=== PATIENT | male | born 1965 | race Caucasian/White ===

== ENCOUNTER 2017-04-07 19:48 | Emergency (ER) | payer BC, OTHER ==
[~2017-04-07] VITALS: Ht 182.9 cm; Wt 99.8 kg
[~2017-04-07 19:48] MED LIST: ZANTAC
[2017-04-07] MEDS ORDERED: HYDROCODON-ACE1 EAC5 PO (20:01)
[2017-04-07] MEDS ORDERED: COLCHICINE0.6 MG PO (21:07)
[2017-04-07] MEDS ORDERED: NORCO 5-325 TA1 EACH PO (21:10)
[2017-04-07 21:31] VITALS: BP 126/79
== END 2017-04-07 21:35 | disposition home or self-care (01) ==
LOC: ER 19:48
DX: M10.9 Gout, unspecified (principal); Z88.5 Allergy status to narcotic agent; Z98.890 Other specified postprocedural states

== ENCOUNTER 2017-12-13 16:16 | Inpatient (IN) | payer BC, OTHER ==
[~2017-12-13] VITALS: Ht 180.3 cm; Wt 97.5 kg
--- NOTE | ~2017-12-13 | EKG ---
[address] [place] [address] ELECTROCARDIOGRAM REPORT Name: DORA EARLY Room #: 463-P [facility] IN ..#: [id number] Admission: 12/13/17 Attend Phys: Raul Foreman MD Discharge: Date of : 65 Report #: [id number] THIS REPORT FOR: //name// ED Test Date: 2017-12-13 Test Time: 16:32:39 Pat Name: DORA EARLY Department: Room: Gender: M Computer Systems Administrator: [facility] : 1965 Requested By: Jeison aWllace Order Number: [id number] MD: Sergio Jarrett Measurements Intervals [place] Rate: 78 P: 1 DE: 171 QRS: -7 QRSD: 86 T: 40 QT: 350 QTc: 399 Interpretive Statements Sinus rhythm No significant abnormality Compared to ECG 06/29/2008 22:42:13 ST (T wave) deviation no longer present Electronically Signed On 12-14-2017 7:52:05 CDT by Sergio Jarrett [email or web address] <ELECTRONICALLY SIGNED> By: Sergio Jarrett MD, [facility] 12/14/17 0752 [id number] 163 Sergio Jarrett MD, [facility] /EPI
--- NOTE | ~2017-12-13 | 2DMMODE ---
[facility] [address] [place] [address] 2 D/M-MODE ECHOCARDIOGRAM Name: DORA EARLY Room #: 463-P [facility] IN ..#: [id number] Admission: 12/13/17 Attend Phys: Raul Foreman MD Discharge: Date of : 65 Date of Service: 12/14/17 1608 Report #: [id number] THIS REPORT FOR: //name// APPROVED REPORT Study performed: 12/14/2017 15:14:12 EXAM: Comprehensive 2D, Doppler, and color-flow Echocardiogram Patient Location: Bedside Room #: 463 Status: routine BSA: 2.15 HR: 60 bpm BP: 110/68 mmHg Other Information Study Quality: Adequate Indications CAD Chest Pain Presyncope Aortic Valve AoV Peak Nate.: 1.16 m/s AO Peak Gr.: 5.41 mmHg LVOT Max P.98 mmHg LVOT Max V: 1.00 m/s Mitral Valve E/A Ratio: 1.1 MV Decel. Time: 247.93 ms MV E Max Nate.: 0.84 m/s MV A Nate.: 0.78 m/s MV PHT: 71.90 ms IVRT: 101.50 ms Pulmonary Valve PV Peak Nate.: 0.70 m/s PV Peak Gr.: 1.94 mmHg Pulmonary Vein P Vein S: 0.41 m/s P Vein A: 0.25 m/s P Vein D: 0.32 m/s P Vein A Dur.: 147.6 msec P Vein S/D Ratio: 1.28 Left Ventricle [facility] [address] [address] 2 D/M-MODE ECHOCARDIOGRAM Name: DORA EARLY Room #: 463-P ADM IN M.R.#: [id number] Admission: 12/13/17 Attend Phys: Raul Foreman MD Discharge: Date of : 65 Date of Service: 12/14/17 1608 Report #: [id number] The left ventricle is normal size. There is normal left ventricular wall thickness. The left ventricular systolic function is normal. LVEF is 55-60%. The left ventricular diastolic function is normal. Right Ventricle The right ventricle is normal size. The right ventricular systolic function is normal. Atria The left atrium size is normal. The right atrium size is normal. Aortic Valve The aortic valve is normal in structure. No aortic regurgitation is present. There is no aortic valvular stenosis. Mitral Valve The mitral valve is normal in structure. There is no mitral valve regurgitation noted. No evidence of mitral valve stenosis. Tricuspid Valve The tricuspid valve is normal in structure. There is no tricuspid valve regurgitation noted. Pulmonic Valve The pulmonary valve is normal in structure. There is no pulmonic valvular regurgitation. Great Vessels The aortic root is normal in size. IVC is not well visualized. Pericardium There is no pericardial effusion. <Conclusion> 1. Normal echocardiogram with Doppler 2. Pulmonary artery pressure could not be reliably ascertained 3. No pericardial effusion <ELECTRONICALLY SIGNED> By: Sergio Jarrett MD, FACC 12/14/17 1608 1608 1608 Sergio Jarrett MD, FACC /INF
[~2017-12-13 16:16] MED LIST changes: +COLCHICINE0.6 MG PO; +HYDROCODON-ACE1 EAC5 PO; +NORCO 5-325 TA1 EACH PO
[2017-12-13 16:25] VITALS: BP 151/87
[2017-12-13 16:48] LABS: ABSOLUTE NEUTROPHILS 6.5 thou/uL (1.4-8.2); EOSINOPHILS 3.9 % (0.0-3.0); HEMATOCRIT 51.3 % (42.0-52.0); HEMOGLOBIN 17.9 gm/dL (14.0-18.0); LYMPHOCYTES 22.9 % (24.0-44.0); MCH 30.7 pg (26.0-34.0); MCHC 34.9 g/dL (28.0-37.0); MCV 88.1 fL (80.0-100.0); MONOCYTES 6.4 % (1.0-8.0); PLATELET COUNT 252 thou/uL (150-400); POLYS 65.8 % (36.0-66.0); RBC 5.82 mil/uL (4.50-6.00); RDW 14.8 % (10.5-14.5); WBC 9.8 thou/uL (4.0-11.0)
[2017-12-13 16:56] LABS: ANION GAP 9 mmol/L (7-16); BUN 18 mg/dL (7-18); CALCIUM 8.7 mg/dL (8.5-10.1); CHLORIDE 106 mmol/L (98-107); CO2 26 mmol/L (21-32); GLUCOSE 111 mg/dL (74-106); POTASSIUM 3.5 mmol/L (3.5-5.1); SODIUM 141 mmol/L (136-145)
[2017-12-13 17:05] LABS: TROPONIN-I <0.06 ng/mL (<0.06)
[2017-12-13] MEDS ORDERED: LIPO-FLAVONOID1 EACH PO (17:44)
[2017-12-13] MEDS ORDERED: PRILOSEC 20 MG20 MG PO (17:45)
[2017-12-13] MEDS ORDERED: TUMERIC (17:46)
[2017-12-13] MEDS ORDERED: BEET ROOT (17:47)
[2017-12-13 18:27] VITALS: BP 119/73
[2017-12-13 19:54] VITALS: BP 131/88
[2017-12-13 20:20] VITALS: BP 131/88
[2017-12-13 20:52] VITALS: BP 140/93
[2017-12-14 04:10] VITALS: BP 95/55
[2017-12-14 05:11] LABS: CALCIUM 8.1 mg/dL (8.5-10.1); CREATININE 0.7 mg/dL (0.7-1.3); POTASSIUM 4.2 mmol/L (3.5-5.1)
[2017-12-14 05:12] LABS: HEMATOCRIT 47.5 % (42.0-52.0); HEMOGLOBIN 16.6 gm/dL (14.0-18.0); MCH 30.8 pg (26.0-34.0); RBC 5.4 mil/uL (4.50-6.00); RDW 14.9 % (10.5-14.5); WBC 7.9 thou/uL (4.0-11.0)
[2017-12-14 08:14] VITALS: BP 110/68
[2017-12-14 09:41] LABS: CHOLESTEROL 136 mg/dL (<200); HDL CHOLESTEROL 24 mg/dL (>40); LDL CHOLESTEROL 80 mg/dL (<100); TC:HDL 5.7 Ratio (Not establshd); TRIGLYCERIDE 162 mg/dL (<150); VLDL 32 mg/dL (<40)
[2017-12-14] MEDS ORDERED: ASPIR 8181 MG PO (15:08)
[2017-12-14] MEDS ORDERED: ATORVASTATIN CA40 MG PO (15:08)
[2017-12-14 15:17] VITALS: BP 110/68
[2017-12-14 15:35] VITALS: BP 107/69
== END 2017-12-14 16:40 | disposition home or self-care (01) | DRG 287 ==
LOC: ER 16:16 → EROBS 17:29 → 4W 17:29 → 3W 18:05 → EROBS 18:28 → 4W 20:21 → ENTRNSPT 12-14 16:27 → 4W 12-14 16:40
PROVIDERS: Hospitalist; Nurse Practitioner Adult Health; Physician Assistant
DX: R07.9 Chest pain, unspecified (principal); K21.9 Gastro-esophageal reflux disease without esophagitis; M10.9 Gout, unspecified; I25.10 Atherosclerotic heart disease of native coronary artery without angina pectoris; Z87.828 Personal history of other (healed) physical injury and trauma; Z79.899 Other long term (current) drug therapy; Z82.49 Family history of ischemic heart disease and other diseases of the circulatory system; Z88.6 Allergy status to analgesic agent; Z79.1 Long term (current) use of non-steroidal anti-inflammatories (NSAID); Z87.891 Personal history of nicotine dependence
CPT/HCPCS: 10045